=== PATIENT | female | born 1990 | race Caucasian/White ===

== ENCOUNTER 2017-07-21 04:06 | Inpatient (IN) ==
[2017-07-21] MEDS ORDERED: SODIUM CHLORIDE 0.9% 2,000 ML IV STA ×2 (05:31→07:21)
[2017-07-21] MEDS ORDERED: ONDANSETRON 4 MG/2 ML VIAL IV STA (05:33)
[2017-07-21] MEDS ORDERED: ONDANSETRON 4 MG/2 ML VIAL ONE (05:36)
[2017-07-21 05:41] LABS: Basophils % 0.2 % (0.0-0.8); Hematocrit 44.7 VOL% (35.7-47.0); Hemoglobin 16.2 GM/DL (12.0-16.0); Immature Granulocytes % 0.3 %; Immature Granulocytes Absolute 0.05 #; Lymphocytes # 0.4 10*3/uL (1.4-4.0); Lymphocytes % 2.4 % (21.3-54.2); Mean Corpuscular HGB Conc 36.2 GM/DL (32-36); Mean Corpuscular Hemoglobin 30 PG (27-34); Mean Corpuscular Volume 83.4 FL (87-102); Mean Platelet Volume 9.4 FL (9.6-12.0); Monocytes # 0.4 10*3/uL (0.11-0.8); Monocytes % 2.2 % (1.7-12.7); Neutrophils # 16.2 10*3/uL (1.4-7.4); Neutrophils % 94.9 % (38.7-73.9); Platelet Count 262 T/CUMM (130-400); Red Blood Count 5.36 MC/CUMM (3.8-5.5); Red Cell Distribution Width 12.3 % (9.3-17.3)
[2017-07-21 05:54] LABS: Lactic Acid 1.5 MMOL/L (0.4-2.0)
[2017-07-21 05:55] LABS: Albumin 4.5 G/DL (3.4-5.0); Bilirubin,Total 1.8 MG/DL (0.2-1.0); Osmolality,Calculated 280.7 MOS/KG (273-304); Potassium 4.1 MMOL/L (3.5-5.1); Total Protein 7.9 G/DL (6.4-8.3)
[2017-07-21 06:09] LABS: Band Neutrophils 1 % (0-10); Giant Platelets Few; Hypochromasia 1+; Lymphocytes 2 % (20-55); Ovalocytes Slight; Platelet Estimate Adequate; Segmented Neutrophils 96 % (50-85); Total Cells Counted 100
[2017-07-21] MEDS ORDERED: CEFEPIME 2,000 MG in SODIUM CHLORIDE 0.9% 100 ML IV STA (07:20)
[2017-07-21] MEDS ORDERED: VANCOMYCIN INJ 1,000 MG in SODIUM CHLORIDE 0.9% 250 ML IV STA (07:21)
[2017-07-21] MEDS ORDERED: CEFEPIME 2,000 MG in SODIUM CHLORIDE 0.9% 50 ML IV STA ×2 (07:27→07:28)
[2017-07-21] MEDS ORDERED: IBUPROFEN 800 MG TABLET PO STA (07:40)
[2017-07-21] MEDS ORDERED: IBUPROFEN 800 MG TABLET ONE (07:44)
[2017-07-21] MEDS ORDERED: VANCOMYCIN 1,000 MG VIAL ONE (07:44)
[2017-07-21] MEDS ORDERED: ONDANSETRON 4 MG/2 ML VIAL IV PRN (08:21)
[2017-07-21] MEDS ORDERED: ACETAMINOPHEN 325 MG TABLET PO PRN (08:21)
[2017-07-21 08:29] LABS: Apearance,Urine Slightly Hazy (Clear); Bilirubin,Urine Negative (Negative); Blood, Urine Small mg/dL (Negative); Glucose,Urine (UA) Negative (Negative); Ketones,Urine 20 mg/dL (Negative); Mucus,Urine Occasional /LPF (Occasional); Nitrite,Urine Negative (Negative); Protein,Urine Negative; RBC,Urine <1 /HPF (0-4); Squamous Epithelial Cell,Urine Occasional /HPF (0-10); Urine Color Yellow (Yellow); Urine Specific Gravity 1.017 (1.001-1.035); Urine Urobilinogen < 2.0 EU/DL (0.2-1.0); WBC,Urine <1 /HPF (0-6)
[2017-07-21] MEDS ORDERED: diphenhydrAMINE 50 MG/1 ML VIAL ONE (08:40)
[2017-07-21] MEDS ORDERED: diphenhydrAMINE 50 MG/1 ML VIAL IV STA (08:53)
[2017-07-21] MEDS: SODIUM CHLORIDE 0.9% 1,000 ML IV SCH ×2 (09:56→19:30)
[2017-07-21] MEDS: DOCUSATE SODIUM 100 MG CAPSULE PO SCH ×2 (11:12→20:49)
[2017-07-21] MEDS: PANTOPRAZOLE 40 MG TABLET PO SCH (11:14)
[2017-07-21] MEDS: LOPERAMIDE 2 MG CAPSULE PO PRN ×2 (18:04→23:46)
[2017-07-21] MEDS: CEFEPIME 2,000 MG in SODIUM CHLORIDE 0.9% 50 ML IV SCH (23:41)
[2017-07-22] MEDS: SODIUM CHLORIDE 0.9% 1,000 ML IV SCH ×4 (03:11→19:26)
[2017-07-22] MEDS ORDERED: ALUMINUM/MAGNES/SIMETH MAX STR 30 ML UDCUP PO PRN (03:23)
[2017-07-22 06:08] LABS: Albumin 2.6 G/DL (3.4-5.0); Bilirubin,Total 0.6 MG/DL (0.2-1.0); Calcium 7.5 MG/DL (8.5-10.1); Magnesium 1.9 MG/DL (1.8-2.4); Osmolality,Calculated 283.8 MOS/KG (273-304); Potassium 3.6 MMOL/L (3.5-5.1); Total Protein 4.7 G/DL (6.4-8.3)
[2017-07-22 06:49] LABS: Basophils % 0.5 % (0.0-0.8); Eosinophils # 0.5 10*3/uL (0.0-0.87); Eosinophils % 7.3 % (0.00-10.9); Hematocrit 31.4 VOL% (35.7-47.0); Immature Granulocytes Absolute 0.06 #; Lymphocytes # 2.2 10*3/uL (1.4-4.0); Lymphocytes % 34.3 % (21.3-54.2); Mean Corpuscular HGB Conc 35.4 GM/DL (32-36); Mean Corpuscular Hemoglobin 30 PG (27-34); Mean Corpuscular Volume 85.6 FL (87-102); Mean Platelet Volume 10.1 FL (9.6-12.0); Monocytes # 0.6 10*3/uL (0.11-0.8); Monocytes % 8.9 % (1.7-12.7); Red Blood Count 3.67 MC/CUMM (3.8-5.5); Red Cell Distribution Width 12.5 % (9.3-17.3); White Blood Count 6.3 T/CUMM (4-12)
[2017-07-22 06:50] LABS: Hemoglobin 11.1 GM/DL (12.0-16.0); Platelet Count 133 T/CUMM (130-400)
[2017-07-22] MEDS: PANTOPRAZOLE 40 MG TABLET PO SCH (08:17)
[2017-07-22] MEDS: DOCUSATE SODIUM 100 MG CAPSULE PO SCH ×2 (08:17→20:46)
[2017-07-22] MEDS: CEFEPIME 2,000 MG in SODIUM CHLORIDE 0.9% 50 ML IV SCH (11:17)
[2017-07-23] MEDS: CEFEPIME 2,000 MG in SODIUM CHLORIDE 0.9% 50 ML IV SCH (01:22)
[2017-07-23] MEDS: SODIUM CHLORIDE 0.9% 1,000 ML IV SCH (01:25)
[2017-07-23 07:38] VITALS: BP 100/69
[2017-07-23] MEDS: PANTOPRAZOLE 40 MG TABLET PO SCH (08:38)
[2017-07-23] MEDS ORDERED: CEFEPIME 2,000 MG in SODIUM CHLORIDE 0.9% 50 ML IV SCH (16:00)
== END 2017-07-23 10:15 | disposition home or self-care (01) | DRG 641 ==
LOC: N.ED 04:06 → N.EDINP 08:21 → N.2E 09:46
PROVIDERS: ADMIT Family Medicine; ATTEND Family Medicine